=== PATIENT | female | born 1965 | race Caucasian/White ===

== ENCOUNTER → 2020-04-05 12:13 | Outpatient (BNVA) | payer OTHER, SELFPAY | PROVIDERS: Family Provider Nurse Practitioner; PCP Nurse Practitioner Family; Visit Provider Specialist | DX: M25.551 Pain in right hip (principal) | CPT/HCPCS: 73502 ==

== ENCOUNTER → 2020-08-14 13:18 | Outpatient (BNVA) | payer OTHER, SELFPAY | PROVIDERS: Family Provider Nurse Practitioner; PCP Nurse Practitioner Family; Visit Provider Specialist | DX: M16.51 Unilateral post-traumatic osteoarthritis, right hip (principal) | CPT/HCPCS: 73502; 80053; 85025; 87081 ==

== ENCOUNTER → 2020-08-18 13:13 | Outpatient (BNVA) | payer OTHER, SELFPAY | PROVIDERS: Visit Provider Specialist | DX: Z11.59 Encounter for screening for other viral diseases (principal); M87.051 Idiopathic aseptic necrosis of right femur; M16.51 Unilateral post-traumatic osteoarthritis, right hip | CPT/HCPCS: 87635 ==

== ENCOUNTER 2020-08-23 13:48 | Inpatient (IN) | payer OTHER, SELFPAY ==
[2020-08-14 15:23] VITALS: BMI 35.4
[2020-08-14 16:03] LABS: Basophils # 0.1 10^3/uL (0.0-0.1); Basophils % 1.1 %; Eosinophils # 0.3 10^3/uL (0.0-0.8); Eosinophils % 2.9 %; Hematocrit 43.6 % (37.0-47.0); Hemoglobin 13.8 g/dL (11.5-15.3); Lymphocytes # 4.2 10^3/uL (0.8-4.8); Lymphocytes % 45.1 %; Mean Corpuscular HGB Conc 31.7 g/dL (30.0-36.0); Mean Corpuscular Hemoglobin 30.2 pg (28.0-34.0); Mean Corpuscular Volume 95.4 fL (81-99); Mean Platelet Volume 10.3 fL (7.4-10.4); Monocytes # 0.6 10^3/uL (0.2-0.9); Monocytes % 6.4 %; Neutrophils % 44.2 %; Nucleated Red Blood Cells % 0 %; Platelet Count 345 10^3/cmm (130-400); Red Blood Count 4.57 10^6/uL (4.1-5.3); Red Cell Distribution Width 12.2 % (12.1-15.1); White Blood Count 9.3 10^3/uL (4.0-10.0)
[2020-08-14 16:33] LABS: Alanine Aminotransferase 27 U/L (0-33); Albumin Level 4.6 g/dL (3.5-5.2); Alkaline Phosphatase 60 IU/L (35-105); Aspartate Amino Transferase 29 U/L (0-32); Blood Urea Nitrogen 13 mg/dL (6-20); Calcium 9.9 mg/dL (8.5-10.5); Carbon Dioxide 26 mmol/L (22-29); Chloride 102 mmol/L (98-107); Creatinine Clr Calc Pharmacy 137.6182; Globulin 2.9 g/dL (1.3-4.6); Glomerular Filtration Rate 103.4 mL/min (90-130); Glucose 105 mg/dL (65-115); Osmolality Calculated 288 mOsm/kg (285-295); Sodium 139 mmol/L (136-145); Total Bilirubin 0.3 mg/dL (0.15-1.2); Total Protein 7.5 g/dL (6.6-8.7)
--- NOTE | 2020-08-14 16:44 | SUR.PREOP ---
Dr. Salgado unable to see patient at preop visit, will see day of surgery
[2020-08-22] VITALS (11 sets, daily range): BP systolic 125–153; BP diastolic 55–83; PULSE 74–103; RESP 12–20; TEMP 36.4–36.9; O2SAT 17–100
[2020-08-22 11:28] LABS: Glucose Point of Care 147 mg/dL (70-110)
[2020-08-22] MEDS: CELEcoxib 200 mg Capsule 400 MG PO (11:30)
[2020-08-22] MEDS: sodium chloride 0.9% 1,000 ML 30 ML IV (11:31)
--- NOTE | 2020-08-22 11:40 | P.ANESASSM_ITS ---
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 Proposed Procedure: Operation Date: 08/22/20 12:25 Proposed Procedures p Right Total Hip Arthroplasty 64408 M16.9(Right) - Yaquelin Mendoza MD Familial anesthetic complications: none Was Beta Rula taken within 24 hours: Yes Last intake: Intake Last Liquid Date 08/22/20 Last Liquid Time 10:00 Last Solid Date 08/21/20 Last Solid Time 20:30 Social: Social History: No alcohol and No tobacco Exam: Pre-Anes Outpt Exam: alert, oriented x 3, clear to auscultation ajit aterally and regular rate & rhythm Airway: Cervical ROM: WNL MP: 3 Dentition: Full and Other (permanent retainer) GI: GI: GERD Metabolic: Metabolic: DM, Hyperlipidemia and Morbid obesity Anesthetic Plan: ASA status: 2 Anesthesia: General Meds/Allergies Current Medications: Current Medications Generic Name Dose Route Start Last Admin Trade Name Freq PRN Reason Stop Dose Admin Sodium Chloride 1,000 mls @ 30 ml s/hr 08/22/20 08:00 08/22/20 11:31 Sodium Chloride 0.9% IV 08/23/20 07:59 30 mls/hr .Q24H SHARON Administration PFSH Anesthesia PFSH: Medical History Diabetes mellitus Hyperlipidemia Post-traumatic osteoarthritis of right hip Subcapital fracture of right hip Surgical History Hx of arthroscopy of right knee Family History Other Heart disease Social History Smoking and tobacco status: never smoked Alcohol intake: never Data Anesthesia CBC & Chem 7: 08/14/20 15:45 08/14/20 15:45 Other Labs: Laboratory Results - last 48 hr 08/22/20 11:24 POC Glucose 147 Cardiac Studies: No Data to Display
--- NOTE | 2020-08-22 11:45 | W.PM.OPSUD ---
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
--- NOTE | 2020-08-22 11:49 | PM.OP ---
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 Retained cannulated screws x3 Procedure Done: Right total hip arthroplasty utilizing the following implants from the Gill Accolade II total hip system: The size 54 mm solid back acetabular shell with an E alpha code and an MDM liner size 42 mm inner diameter by E alpha code. An Accolade II size 6 x 127 degree neck angle hip stem, femoral head size 28 mm outer diameter with a -2.7 mm offset inside of an MDM insert size inner diameter 28 mm to match the 42E Specimens removed/disposition: Femoral head sent to pathology, tissue from the cannulated screws sent for culture and pathology, bursal fluid around the cannulated screws sent for culture Surgeon: Yaquelin Mendoza Fish Housekeeper: [facility] OR technicians Anesthesia: General (Intubated, ASA 2) Estimated blood loss (mL): 200 IV fluids (mL): 1,500 Urine output (mL): 200 Complications: None Findings: Severe degenerative osteoarthritis secondary to trauma and avascular necrosis resulting from displaced subcapital hip fracture. Retained hardware with bursal fluid around it. Obvious changes of avascular necrosis involving the femoral head. Large osteophytes around the acetabulum. The hip was stable to internal rotation as well as toe hanging. It was stable at 90 degrees of flexion with 30 degrees of and 80 degrees of internal rotation. The hip was also stable to external rotation. 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 The patient suffered a displaced subcapital hip fracture which was initially reduced and treated with cannulated screws. The patient went on to develop pain and findings consistent with avascular necrosis. Secondary to this, we elected to proceed with total hip arthroplasty. She understood the risks and complications. She continued to have increasing pain with decreasing ability to do activities of daily living. Therefore, the patient wished to proceed with the total hip arthroplasty. Procedure: Patient was brought to the operating theater. She was transferred to the operating room table and subsequently administered a general anesthetic intubated, ASA 2. Following administration of adequate anesthesia, the patient was placed in full lateral position and held in position with a pegboard. The patient's right lower extremity was then prepped and draped in usual fashion utilizing DuraPrep. It was draped free. Following prepping and draping a surgical pause was performed. At the time of surgical pause, we identified the site and side of surgery. We also identified the patient and preoperative surgical markings. Confirmation was made of equipment availability. Additionally, the patient's preoperative IV antibiotic, vancomycin 1 g and TXA 1 g preoperatively was confirmed as being given in a timely fashion and being the appropriate. An additional dose of TXA was to be given postoperatively as well. Following the surgical pause, an incision was made centering over the patient's greater trochanter continuing proximally and distally as necessary to allow access to the hip joint. Dissection continued through skin and soft tissues using a scalpel, and hemostasis was obtained using electrocautery. The tensor fascia kt was identified and incised longitudinally. Sciatic nerve was identified and protected throughout the surgical procedure. The patient had increased subcutaneous fatty tissue. This made the procedure and exposure as well as access to the acetabulum and femur difficult. A Charnley U retractor was placed after the tensor fascia kt had been incised longitudinally, and the sciatic nerve had been identified. Once the Charnley retractor was placed, we were able to palpate the cannulated screws. An incision was made in the vastus lateralis and through this, we were able to remove all 3 screws. Soft tissue from within the screw was sent to pathology. Additionally, cultures were taken of the fluid and the tissue from the area of the cannulated screws was sent to pathology as well. The screws were removed uneventfully. Attention was then directed to the total hip arthroplasty portion of the procedure. The hip had significant limitation in range of motion, and most particularly, and internal rotation. Retractors were placed, and the piriformis muscle was identified and tagged. Piriformis muscle along with the remaining short external rotators were then incised from the posterior aspect of the hip joint. These were retracted posteriorly. The capsule was entered in a T-type fashion with the edges being tagged. Head was noted to be deformed. Appropriate osteotomy was performed of the femoral neck following hip dislocation. We then evaluated the the femoral head. This did demonstrate findings of avascular necrosis. Additionally, we evaluated the acetabulum. The femur was retracted anteriorly. Soft tissues were retracted, osteophytes were excised, and the labrum was removed. We then began reaming. Reaming was accomplished sequentially. We reamed to a size 53 to allow for a size 54 acetabular shell. The acetabulum was impacted into position. The dome hole was filled with the appropriate metal plug. Also, we confirmed that the acetabular insert was completely seated prior to addressing the femur. After the acetabulum was in appropriate position, we placed the MDM liner without difficulty. The cup was noted to seat nicely and had good fixation upon impact. Attention was directed to the proximal femur. The proximal femur was lifted out of the wound as much as possible. A canal finder was passed with difficulty after utilization of the box chisel. The reamer was used to lateralize. We then began broaching. We broached sequentially, and placed a size 6 broach in position for trial reduction. A trial reduction was accomplished with initially with a a -4 mm femoral head inside the appropriate MDM insert as we were unable to reduce the construct with a +0 mm femoral head. We then increased to a -2.7 mm femoral head with the appropriate MDM insert. This was able to be reduced nicely and did not feel over tight. This gave excellent stability, and with this in place, we had the above stabilities, and at that time, we felt that we had acceptable leg lengths. It had been determined preoperatively. Therefore, the -2.7 mm offset femoral head was chosen. Trial components were removed after the hip was dislocated. The size 6 Accolade II 127 degree neck angle hip stem was impacted into position without difficulty and onto this was placed a -2.7 mm offset femoral head with the appropriate MDM liner. The hip was then reduced without difficulty. With this construct, we had the above-noted stability. The stem was noted to seat nicely prior to placement of the femoral head. The wound was then copiously irrigated with 20 mL of Betadine and 500 mL of normal saline mixed together. Subsequently, we suctioned this out and irrigated the wound copiously with lactated Ringer's. Following reduction of the prosthesis once again, we confirmed the stability of the hip. Leg lengths were also felt to be satisfactory. Being satisfied with the prosthesis, attention was directed to closure. Closure was accomplished with 0 Vicryl in the capsular tissues. Piriformis was reattached with 0 Vicryl as well. Tensor fascia kt was closed with 0 Vicryl in an interrupted fashion. The subcutaneous tissues were closed with a combination of 0 Vicryl and 2-0 Monocryl. Vancomycin powder and a SurgiFlo thrombin mixture was placed into the wound as well. The skin was closed with a running 3-0 Monocryl followed by Exofin and Steri-Strips. This was covered with Telfa and Tegaderm. The patient was placed in an abduction pillow. She was returned the Recovery Room in a satisfactory condition and will be discharged to the floor for postoperative rehabilitation and pain management. There were no complications. Associated Problem List Diagnoses (1) Avascular necrosis of bone of right hip: (2) Post-traumatic osteoarthritis of right hip: (3) Retained orthopedic hardware:
[2020-08-22] MEDS: vancomycin 1,000 MG in sodium chloride 0.9% 250 ML 250 MG IV (12:10)
[2020-08-22] MEDS: vancomycin 1,000 MG SDV 1000 MG IRRIGATION (13:21)
[2020-08-22] MEDS: vancomycin 1,000 MG SDV 1000 MG XX (13:22)
--- NOTE | 2020-08-22 13:45 | SUR.OPER ---
Family Notified Of Patient's Status Via Phone.
--- NOTE | 2020-08-22 15:29 | XRR_ITS ---
PROCEDURE INFORMATION: Exam: XR Pelvis Exam date and time: 08/22/2020 3:46 PM Age: 55 years old Clinical indication: Device placement; Other: Status post right total hip arthroplasty; Prior surgery; Surgery date: Post-operative (0-2 days) TECHNIQUE: Imaging protocol: XR pelvis. Views: 1 or 2 view. COMPARISON: CR XR hip RT 2-3V wo/w pel* [id number] 08/14/2020 1:23 PM FINDINGS: Bones/joints: Status post right hip arthroplasty. Soft tissues: Soft tissues demonstrate postop change. XR/XR pelvis 1-2V* [id number] IMPRESSION: Status post right hip arthroplasty.
--- NOTE | 2020-08-22 15:50 | PM.PACU ---
PACU note Post-Anesthesia Exam: awake and vital signs stable Disposition: admitted
[2020-08-22] MEDS: TRAMadol 50 mg Tablet PO (16:22)
[2020-08-22] MEDS: chlorhexidine gluconate 0.12% Btl 473 mL 30 ML MUCOUS MEM ×2 (18:22→21:54)
[2020-08-22] MEDS: CELEcoxib 200 mg Capsule PO (18:24)
[2020-08-22] MEDS: calcium carbonate 500 mg Chew Tablet 1000 MG PO (18:24)
[2020-08-22] MEDS: propranolol 20 mg Tablet 10 MG PO (18:24)
[2020-08-22] MEDS: iron polysaccharide complex 150 mg Capsule PO (18:24)
[2020-08-22] MEDS: metformin 500 mg Tablet 1000 MG PO (18:24)
[2020-08-22] MEDS: mupirocin oint 22 gm 1 APPLIC NASAL (18:25)
[2020-08-22] MEDS: oxyCODONE 5 mg IR Tab/Cap PO (18:27)
[2020-08-22] MEDS: sodium chloride 0.9% 1,000 ML 100 ML IV (23:28)
[2020-08-23] VITALS (9 sets, daily range): BP systolic 113–146; BP diastolic 67–82; PULSE 87–98; RESP 16–18; TEMP 36.6–37.3; O2SAT 91–96
[2020-08-23] MEDS: vancomycin 1,000 MG in sodium chloride 0.9% 250 ML 250 MG IV (01:45)
[2020-08-23 02:50] LABS: Basophils # 0.1 10^3/uL (0.0-0.1); Basophils % 0.5 %; Eosinophils # 0.1 10^3/uL (0.0-0.8); Eosinophils % 0.8 %; Hematocrit 37.6 % (37.0-47.0); Hemoglobin 11.8 g/dL (11.5-15.3); Lymphocytes # 3.3 10^3/uL (0.8-4.8); Lymphocytes % 30.5 %; Mean Corpuscular HGB Conc 31.4 g/dL (30.0-36.0); Mean Corpuscular Hemoglobin 30.3 pg (28.0-34.0); Mean Corpuscular Volume 96.4 fL (81-99); Mean Platelet Volume 10.6 fL (7.4-10.4); Monocytes # 0.8 10^3/uL (0.2-0.9); Monocytes % 7.7 %; Nucleated Red Blood Cells % 0 %; Platelet Count 276 10^3/cmm (130-400); Red Cell Distribution Width 12.3 % (12.1-15.1); White Blood Count 10.7 10^3/uL (4.0-10.0)
[2020-08-23 03:17] LABS: Anion Gap 11.9 (5-19); Blood Urea Nitrogen 10 mg/dL (6-20); Carbon Dioxide 24 mmol/L (22-29); Chloride 106 mmol/L (98-107); Creatinine Clr Calc Pharmacy 137.6182; Glomerular Filtration Rate 103.4 mL/min (90-130); Glucose 128 mg/dL (65-115); Osmolality Calculated 287 mOsm/kg (285-295); Potassium 3.9 mmol/L (3.5-5.1); Sodium 138 mmol/L (136-145)
[2020-08-23] MEDS: atorvastatin 40 mg Tablet PO (08:34)
[2020-08-23] MEDS: calcium carbonate 500 mg Chew Tablet 1000 MG PO ×2 (08:34→18:34)
[2020-08-23] MEDS: iron polysaccharide complex 150 mg Capsule PO ×2 (08:34→18:35)
[2020-08-23] MEDS: aspirin 325 mg EC Tablet PO (08:34)
[2020-08-23] MEDS: cetirizine 10 mg Tablet PO (08:35)
[2020-08-23] MEDS: cholecalciferol (vitamin D3) 1,000 unit Tablet 1000 UNIT PO (08:35)
[2020-08-23] MEDS: fluticasone nasal spray 16gm Btl 1 SPRAY INTRANASAL (08:35)
[2020-08-23] MEDS: CELEcoxib 200 mg Capsule PO (08:35)
[2020-08-23] MEDS: multivitamin therapeutic Tablet 1 TAB PO (08:36)
[2020-08-23] MEDS: metformin 500 mg Tablet 1000 MG PO ×2 (08:36→18:34)
[2020-08-23] MEDS: pantoprazole DR 40 mg Tablet PO (08:37)
[2020-08-23] MEDS: omega-3 fatty acids 1,000 mg Capsule 1000 MG PO (08:37)
[2020-08-23] MEDS: propranolol 20 mg Tablet 10 MG PO ×2 (08:37→18:35)
[2020-08-23] MEDS: sennosides-docusate Tablet 2 TAB PO ×2 (08:37→18:34)
[2020-08-23] MEDS: sitagliptin 100 mg Tablet PO (08:38)
[2020-08-23] MEDS: oxyCODONE 5 mg IR Tab/Cap PO ×2 (08:38→18:34)
[2020-08-23] MEDS: chlorhexidine gluconate 0.12% Btl 473 mL 30 ML MUCOUS MEM ×4 (08:40→21:26)
[2020-08-23] MEDS: mupirocin oint 22 gm 1 APPLIC NASAL ×2 (08:40→18:33)
--- NOTE | 2020-08-23 10:27 | ANE.PACU2 ---
Inpatient post-anesthesia follow up: Airway intact: Yes Vital signs: Temperature 97.9 F Pulse Rate 89 Respiratory Rate 18 Blood Pressure 113/67 Pulse Oximetry 94 Oxygen Delivery Me thod [ Room Air Current Rate & Del nav] Oxygen Delivery Me thod Nasal Cannula Oxygen Flow Rate 2 Fraction of Inspir ed Oxygen Hydration adequate: Yes Nausea and vomiting: No Pain level: 2 Mental status: Baseline
[2020-08-23] MEDS: sodium chloride 0.9% 1,000 ML 100 ML IV ×2 (10:40→21:28)
--- NOTE | 2020-08-23 13:44 | PM.PN ---
Subjective Subjective: Interval history: Patient is on her first postoperative day following right total hip arthroplasty. In an attempt to get up with physical therapy, she did have lightheadedness and dizziness. She notes that she is concerned this could be from the Celebrex, however, this is interfered with her physical therapy today. Medications: Reviewed: Yes Vitals/I&O/Wt Last Vital Signs Temp 97.9 F 08/23/20 11:28 Pulse 87 08/23/20 11:28 Resp 18 08/23/20 11:28 BP 120/74 08/23/20 11:28 Pulse Ox 91 08/23/20 11:28 08/22/20 08/23/20 08/23/20 22:59 06:59 14:59 Intake Total 940 / 2510.0 350 / 2860.0 1480 / 1480 Output Total 1750 / 1750 650 / 2400 Balance -810 / 760.0 -300 / 460.0 1480 / 1480 Physical Exam Const: COMMON NORMALS: no acute distress, average body habitus, patient oriented x3 and alert GENERAL APPEARANCE: cooperative and comfortable ORIENTATION/CONSCIOUSNESS: Yes awake HENMT: COMMON NORMALS: normocephalic and atraumatic HEAD & SCALP: normocephalic and atraumatic Eye: GENERAL EYE: appearance normal, both eyes and all related structures Chest: COMMONS NORMALS: normal inspection of the chest Resp: COMMON NORMALS: normal respiratory effort EFFORT & INSPECTION: Yes able to speak in complete sentences and Yes symmetric chest movement Extremity: RIGHT LOWER EXTREMITY: Yes hip joint Right hip: Yes inspection (There is minimal ecchymosis or swelling about the incision. The incision remains covered.), Yes palpation (There is no tenderness to palpation.), Yes ROM (Not evaluated.) and Yes neurovascular exam (Intact.) Neuro: COMMON NORMALS: patient oriented x3 SENSORIUM/ORIENTATION: Yes alert Psych: COMMON NORMALS: mental status grossly normal APPEARANCE: Yes grossly normal ATTITUDE: Yes calm and Yes engaged ATTENTION/CONCENTRATION: Yes attention grossly intact Skin: COMMON NORMALS: no rashes or lesions noted GENERAL SKIN EXAM: no rashes or lesions noted Urinary Catheter Management^: F: Cath Placed During This Visit: yes, but has since been removed by the nurse Reason for Continuing Indwelling Catheter: Decision to DC Catheter Urinary Catheter Date of Insertion: 08/22/20 Urinary Catheter Time of Insertion: 13:00 Date Urinary Catheter Removed: 08/23/20 Time Urinary Catheter Discontinued: 06:00 Data : 08/23/20 02:10 08/23/20 02:10 Micro: Microbiology 08/22/20 13:27 Gram Stain - Final Hip - Right 08/22/20 13:27 Gram Stain - Final Hip - Right A&P Assessment and plan (1) Avascular necrosis of bone of right hip: Total hip arthroplasty for posttraumatic avascular necrosis secondary to a fall while at work. The patient had hoped to go home today, however, she has had some dizziness and difficulty working with physical therapy. For safety reasons, it was felt prudent to maintain her for 1 more day in the hospital so that she may have appropriate physical therapy to ensure her safety at home. Her wound is benign. There is no evidence of DVT. Status: Acute (2) Retained orthopedic hardware: Status: Acute (3) Post-traumatic osteoarthritis of right hip: Status: Acute Attestations Medical Necessity Statement*: Patient requires another midnight and changed to inpatient status secondary to fluctuating blood pressure and inability to participate with physical therapy following total hip arthroplasty. Coding Level of Care Code Acute Electronic Security Specialist for Patricio Damon Diagnoses Avascular necrosis of bone of right hip M87.051 Retained orthopedic hardware Z96.9 Post-traumatic osteoarthritis of right hip M16.51
[2020-08-23] MEDS: acetaminophen 500 mg Tablet 1000 MG PO (19:17)
[2020-08-24] MEDS: ondansetron 2 mg/ML SDV 2 mL 4 MG IVP (00:40)
[2020-08-24 01:43] VITALS: BP 125/72; PULSE 79; RESP 17; TEMP 36.7; O2SAT 93
[2020-08-24 05:31] VITALS: BP 145/71; PULSE 89; RESP 18; TEMP 36.5; O2SAT 90
[2020-08-24 05:44] LABS: Basophils % 0.5 %; Eosinophils # 0.2 10^3/uL (0.0-0.8); Eosinophils % 2.5 %; Hematocrit 35.4 % (37.0-47.0); Hemoglobin 10.9 g/dL (11.5-15.3); Lymphocytes # 3.1 10^3/uL (0.8-4.8); Lymphocytes % 34.9 %; Mean Corpuscular HGB Conc 30.8 g/dL (30.0-36.0); Mean Corpuscular Hemoglobin 30.3 pg (28.0-34.0); Mean Corpuscular Volume 98.3 fL (81-99); Mean Platelet Volume 10.4 fL (7.4-10.4); Monocytes # 0.7 10^3/uL (0.2-0.9); Monocytes % 7.6 %; Neutrophils # 4.77 10^3/uL (1.8-7.7); Neutrophils % 54.3 %; Nucleated Red Blood Cells % 0 %; Platelet Count 234 10^3/cmm (130-400); Red Cell Distribution Width 12.6 % (12.1-15.1); White Blood Count 8.8 10^3/uL (4.0-10.0)
[2020-08-24] MEDS: acetaminophen 500 mg Tablet 1000 MG PO ×2 (05:54→13:06)
[2020-08-24] MEDS: CELEcoxib 200 mg Capsule PO (05:54)
[2020-08-24 07:56] VITALS: BP 111/63; PULSE 92; RESP 18; TEMP 36.7; O2SAT 90
[2020-08-24] MEDS: sennosides-docusate Tablet 2 TAB PO (09:02)
[2020-08-24] MEDS: propranolol 20 mg Tablet 10 MG PO (09:02)
[2020-08-24] MEDS: sitagliptin 100 mg Tablet PO (09:02)
[2020-08-24] MEDS: calcium carbonate 500 mg Chew Tablet 1000 MG PO (09:03)
[2020-08-24] MEDS: aspirin 325 mg EC Tablet PO (09:03)
[2020-08-24] MEDS: pantoprazole DR 40 mg Tablet PO (09:03)
[2020-08-24] MEDS: multivitamin therapeutic Tablet 1 TAB PO ×2 (09:03→09:04)
[2020-08-24] MEDS: iron polysaccharide complex 150 mg Capsule PO (09:03)
[2020-08-24] MEDS: omega-3 fatty acids 1,000 mg Capsule 1000 MG PO (09:04)
[2020-08-24] MEDS: metformin 500 mg Tablet 1000 MG PO (09:04)
[2020-08-24] MEDS: atorvastatin 40 mg Tablet PO (09:05)
[2020-08-24] MEDS: fluticasone nasal spray 16gm Btl 1 SPRAY INTRANASAL (09:05)
[2020-08-24] MEDS: cholecalciferol (vitamin D3) 1,000 unit Tablet 1000 UNIT PO (09:05)
[2020-08-24] MEDS: chlorhexidine gluconate 0.12% Btl 473 mL 30 ML MUCOUS MEM ×2 (09:05→13:09)
[2020-08-24] MEDS: cetirizine 10 mg Tablet PO (09:05)
[2020-08-24] MEDS: sodium chloride 0.9% 1,000 ML 100 ML IV (09:06)
--- NOTE | 2020-08-24 10:01 | PC.NURSE ---
Patient assisted to restroom: Patient assisted out of bed by placing a gait belt on right foot (as directed by PT) and patient able to lift right leg and pull it to left side of bed to assist in getting out of bed. Patient sat on side of bed this am and staes she had mild dizziness but educated patient to sit on side of bed until no dizziness. Dizziness was resolved in a few seconds. Patient states pain is at 3 upon movement and getting out of bed. Patient did ambulate to restroom with walker and sba by myself. Patient voided and sba back to bed per patients request. Patient educated on use of IS and importance of ambulation and up to chair for meals. Patient voced understanding. Will continue to monitor. TIARRA HYDE
--- NOTE | 2020-08-24 10:15 | PC.CHAP ---
Pastoral Care Encounter/Spiritual Assessment Type of Contact [] Declined boxcar weigher visit [] Patient/Family/Request visit [] Outpatient visit [] Follow-up visit [] Physician referral [] Code/Alert [x] Routine visit [] Staff referral [] Actively dying [] Patient sleeping [] Family support [] [] Out of room [] Palliative care [] [x] Receiving care in room [] Pre-surgical visit [] Trauma [] Long length of stay [] ICU visit [] Other: Relational/Emotional Strength [] Patient feels connected with others/family/visitors/staff [x] Distress [] Loneliness/isolation [] Abandonment Spirituality of Patient [x] Person of Krista [] Attends Tenriism of their Krista [x] Believes in Prayer [] Reads Bible or Druze materials [] There are Spiritual issues to be addressed Soil Sort Worker Interventions [x] Prayer [x] Active listening [x] Non-anxious presence [x] Spiritual/emotional support [] Crisis/trauma care [x] Spiritual counseling [] Bereavement support [] Provided bereavement packet [] Provided Bible/devotional materials [] Provided toy/stuffed animal, coloring book to patient or family member [] Provided Communion [] Anointing/[place] [] Salvation [x] Completed spiritual assessment [] Other: Impact on Illness or Injury [] Angry [] Fearful [x] Anxious [] Often cries [] Exhaustion [] Unable to work [] Unable to attend mandaen [] Unable to walk/stand [] Unable to read [] Unable to drive [] Unable to eat/drink [] Unable to sleep [] Unable to be with family [] Patient intubated [] Other: Summary Sleepy in some pain, feels better going home has good attitude Time spent with patient 10 mins
[2020-08-24 12:00] VITALS: BP 147/79; PULSE 79; RESP 16; TEMP 36.8; O2SAT 92
--- NOTE | 2020-08-24 13:14 | P.DS_ITS ---
Discharge Providers Date of Admission: 08/23/20 13:48 Date of Discharge: August 24, 2020 Attending Provider at Admission: Yaquelin Mendoza MD Attending Provider at Discharge: Yaquelin Mendoza MD Diagnoses at Discharge Discharge Diagnosis (1) Avascular necrosis of bone of right hip: Status: Acute (2) Retained orthopedic hardware: Status: Acute (3) Post-traumatic osteoarthritis of right hip: Status: Acute Reason for Visit Reason for Visit: right total hip arthroplasty Hospital Course Hospital Course: This 55-year-old with avascular necrosis secondary to a fall and resulting displaced subcapital hip fracture presented for right total hip arthroplasty. Surgery was performed on August 22, and the procedure was as follows: Right total hip arthroplasty utilizing the following implants from the [employer] Accolade II total hip system: The size 54 mm solid back acetabular shell with an E alpha code and an MDM liner size 42 mm inner diameter by E alpha code. An Accolade II size 6 x 127 degree neck angle hip stem, femoral head size 28 mm outer diameter with a -2.7 mm offset inside of an MDM insert size inner diameter 28 mm to match the 42E. On the first postoperative day, the patient was experiencing dizziness. She was not felt safe to be discharged to home. Therefore, she was converted from observation to inpatient status. That evening, she felt much improved. She is seen on the second postoperative day sitting up in a chair ambulating independently in the wahl into the bathroom. She is felt to be safe for discharge and will be discharged to home. Home health will be scheduled for her. Discharge Summary: Patient will be discharged to home with home health. She has an appointment to follow-up with me and understands her hip precautions as well. She is doing very well without complication. Physical Exam Const: COMMON NORMALS: no acute distress, average body habitus, patient oriented x3 and alert GENERAL APPEARANCE: cooperative and comfortable ORIENTATION/CONSCIOUSNESS: Yes awake HENMT: COMMON NORMALS: normocephalic and atraumatic HEAD & SCALP: normocephalic and atraumatic Eye: GENERAL EYE: appearance normal, both eyes and all related structures Chest: COMMONS NORMALS: normal inspection of the chest Resp: COMMON NORMALS: normal respiratory effort EFFORT & INSPECTION: Yes able to speak in complete sentences and Yes symmetric chest movement Extremity: RIGHT LOWER EXTREMITY: Yes hip joint (Dressing is removed. The wound is benign. There is no drainage.) Right hip: Yes inspection (There is no ecchymosis.), Yes palpation (There is minimal to no tenderness to palpation.) and Yes neurovascular exam (Intact distal to the surgical site.) Neuro: COMMON NORMALS: patient oriented x3 SENSORIUM/ORIENTATION: Yes alert Psych: COMMON NORMALS: mental status grossly normal APPEARANCE: Yes grossly normal ATTITUDE: Yes calm and Yes engaged ATTENTION/CONCENTRATION: Yes attention grossly intact Skin: COMMON NORMALS: no rashes or lesions noted GENERAL SKIN EXAM: no rashes or lesions noted Urinary Catheter Management^: F: Cath Placed During This Visit: yes, but has since been removed by the nurse Reason for Continuing Indwelling Catheter: Decision to DC Catheter Urinary Catheter Date of Insertion: 08/22/20 Urinary Catheter Time of Insertion: 13:00 Date Urinary Catheter Removed: 08/23/20 Time Urinary Catheter Discontinued: 06:00 Discharge Data Data Completed and Pending: Completed Studies During Hospitalization Category Date Time Status XR pelvis 1-2V* 7 2170 Routine Exams 08/22/20 15:29 Completed Pending at discharge Category Date Time Status Anaerobic Culture Routine Lab 08/22/20 13:27 Results Complete Blood Co unt w/Auto AM LABS Lab 08/25/20 04:00 Ordered Tissue Culture an d Gram Stain Routi ne Lab 08/22/20 13:27 Results Wound Culture and Gram Stain Routin e Lab 08/22/20 13:27 Results Pathology: Surgic al [PTH] Routine Pth 08/22/20 15:32 Received Labs from last 24 hours 08/24/20 05:25 WBC 8.8 RBC 3.60 L Hgb 10.9 L Hct 35.4 L MCV 98.3 MCH 30.3 MCHC 30.8 RDW 12.6 Plt Count 234 MPV 10.4 Neut % (Auto) 54.3 Lymph % (Auto) 34.9 [place] % (Auto) 7.6 Eos % (Auto) 2.5 Baso % (Auto) 0.5 Neut # (Auto) 4.77 Lymph # (Auto) 3.1 [place] # (Auto) 0.7 Eos # (Auto) 0.2 Baso # (Auto) 0.0 Nucleated RBC % (a uto) 0 Nucleated RBCs # 0.0 Vitals: Last Vital Signs Temp 98.2 F 08/24/20 12:00 Pulse 79 08/24/20 12:00 Resp 16 08/24/20 12:00 BP 147/79 08/24/20 12:00 Pulse Ox 92 08/24/20 12:00 Discharge Plan Discharge Patient Disposition: Home Health Service Condition: Stable Prescriptions: New tramadol 50 mg tablet 50 mg PO Q6H PRN (Reason: pain) Qty: 60 RF: 0 aspirin 325 mg Tablet,Delayed Release (Dr/Ec) 325 mg PO DAILY Qty: 0 RF: 0 acetaminophen 500 mg Tablet 1,000 mg PO Q8H Qty: 0 RF: 0 Continued multivitamin Capsule 1 cap PO DAILY RF: 0 omeprazole 40 mg capsule,delayed release(DR/EC) 20 mg PO DAILY RF: 0 atorvastatin 40 mg tablet 40 mg PO DAILY RF: 0 Invokana 100 mg tablet 100 mg PO DAILY RF: 0 celecoxib [Celebrex] 200 mg capsule 200 mg PO DAILY Qty: 30 RF: 0 (DME) shower chair See Rx Instructions .Route .MEDSUPPLY Qty: 1 RF: 0 (DME) toilet lift See Rx Instructions .Route .MEDSUPPLY Qty: 1 RF: 0 (DME) hip kit See Rx Instructions .Route .MEDSUPPLY Qty: 1 RF: 0 biotin 1 mg Capsule 1 mg PO DAILY RF: 0 tramadol 50 mg Tablet 50 mg PO DAILY PRN (Reason: Pain) RF: 0 Zyrtec 10 mg Capsule 10 mg PO DAILY RF: 0 propranolol 10 mg Tablet 10 mg PO BID RF: 0 amitriptyline 10 mg Tablet 10 mg PO BEDTIME RF: 0 metformin 1,000 mg Tablet 1,000 mg PO BID RF: 0 fluticasone propionate 50 mcg/actuation [place],Suspension 1 spray INTRANASAL DAILY RF: 0 sitagliptin 100 mg Tablet 100 mg PO DAILY RF: 0 fenofibrate 50 mg Capsule 200 mg PO DAILY RF: 0 [place]-3 350 mg-235 mg- 90 mg-597 mg Capsule,Delayed Release(Dr/Ec) 1,000 mg PO DAILY RF: 0 Discharge Orders: Discharge Order (Routine); Ordered 08/24/20 Ordered By: Yaquelin Mendoza Other Ambulatory Orders: DME: Miscellaneous (Order) Location: None Selected Ordered By: Yaquelin Mendoza Referrals: Yaquelin Mendoza MD [Physician] - 11/09/20 2:15 pm Discharge Diet: Advance as tolerated and Usual diet Discharge Activity: Limit activity as instructed, Use walker/crutches as instructed and As per PT/OT instructions Activity Restrictions/Additional Instructions: Maintain cover on wound prn only. Ice to hip. Posterior hip precautions. Work with home physical therapy. Discharge Attestations Time Spent in Discharge Care*: greater than 30 min Quality Metrics Clinical Quality Measures During this hospital stay, did patient experience: None Coding Level of Care Code Acute [employer] for Patricio Damon Diagnoses Avascular necrosis of bone of right hip M87.051 Retained orthopedic hardware Z96.9 Post-traumatic osteoarthritis of right hip M16.51
[2020-08-24 14:46] VITALS: BP 147/79; PULSE 79; RESP 16; TEMP 36.8; O2SAT 92
== END 2020-08-24 14:48 | disposition home health service (06) | DRG 470 ==
PROVIDERS: Admitting Provider Specialist; Visit Provider Specialist
PROC: 0SR90JZ Replacement of Right Hip Joint with Synthetic Substitute, Open Approach (ICD-10-PCS; CPT 27130; principal; 2020-08-22 12:25)
DX: M87.251 Osteonecrosis due to previous trauma, right femur (principal); M16.51 Unilateral post-traumatic osteoarthritis, right hip; E11.9 Type 2 diabetes mellitus without complications; E78.5 Hyperlipidemia, unspecified; K21.9 Gastro-esophageal reflux disease without esophagitis; E66.01 Morbid (severe) obesity due to excess calories; Z68.35 Body mass index [BMI] 35.0-35.9, adult; R42 Dizziness and giddiness
CPT/HCPCS: 12345; 36415; 36416; 51702; 72170; 80048; 82962; 85025; 86850; 86900; 87070; 87075; 87176; 87205; 88304; 96365; 96375; 97110; 97116; 97162; 97165; 97530; 97535; C1776; J0131; J2370; J2405; J2704; J2710; J3010; J3370; J3490; J7030; J7050

== ENCOUNTER → 2020-09-11 14:14 | Outpatient (BNVA) | payer OTHER, SELFPAY | PROVIDERS: Visit Provider Specialist | DX: M87.051 Idiopathic aseptic necrosis of right femur (principal); M16.51 Unilateral post-traumatic osteoarthritis, right hip; Z98.890 Other specified postprocedural states | CPT/HCPCS: 73502 ==

== ENCOUNTER → 2020-11-30 13:19 | Outpatient (BNVA) | payer OTHER, SELFPAY | PROVIDERS: Visit Provider Specialist | DX: Z47.89 Encounter for other orthopedic aftercare (principal); M87.051 Idiopathic aseptic necrosis of right femur; M16.51 Unilateral post-traumatic osteoarthritis, right hip | CPT/HCPCS: 73502 ==

== ENCOUNTER → 2021-12-19 15:23 | Outpatient (BNVA) | payer OTHER, SELFPAY | PROVIDERS: Visit Provider Specialist | DX: M25.512 Pain in left shoulder (principal) | CPT/HCPCS: 73030 ==